=== PATIENT | female | born 1955 | race Caucasian/White ===

== ENCOUNTER 2018-10-15 10:35 | Day surgery (SDC) | payer BC ==
[2018-10-10 15:38] VITALS: BMI 18.0
--- NOTE | 2018-10-14 09:54 | HP ---
Admitting History and Physical - Primary Care Physician PCP: Yusuf Smith Y - Admission Chief Complaint: right breast cancer History of Present Illness: Patient is a 63 yo female noted to have right breast mass with calcifications on screening mammo and US at the 10 oclock position. 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 The patient had an MRI done 09/24 which was c/w known cancer (3.2 cm) without evidence of multifocal or contralateral dz. Patient is now presenting for right breast WE with NL. History Source: Patient Limitations to Obtaining History: No Limitations - Past Medical History Cardiovascular: Yes: HTN ...: No - Past Surgical History Past Surgical History: Yes: (x2), Tonsillectomy Additional Past Surgical History: [place] ocular procedure sec to glaucoma - Smoking History Smoking history: Current every day smoker Have you smoked in the past 12 months: Yes Aproximately how many cigarettes per day: 5 - Alcohol/Substance Use Hx Alcohol Use: Yes (1-2/DAY Wine) Home Medications - Allergies Allergies/Adverse Reactions: Allergies Allergy/AdvReac Type Severity Reaction Status Date / Time No Known Drug Allergies Allergy Verified 10/10/18 15:11 - Home Medications Home Medications: Ambulatory Orders Albuterol Sulfate Inhaler - [Ventolin Hfa Inhaler -] 1 - 2 inh PO QID PRN Amlodipine Besylate [Norvasc -] 10 mg PO HS 10/10/18 Ascorbic Acid [Vitamin C] 20 mg PO DAILY 10/10/18 Bupropion HCl [Wellbutrin Xl] 300 mg PO DAILY 10/10/18 Escitalopram Oxalate [Lexapro -] 10 mg PO HS 10/10/18 Fluticasone Propionate [Flovent Diskus] 2 puff IH DAILY 10/10/18 Glucosam/Chond/Collagen/Hyalur [Glucosamine Chondroitin Cap] 1 each PO DAILY 05/20 Levothyroxine [Synthroid -] 50 mcg PO DAILY 10/10/18 Telmisartan 80 mg PO HS 10/10/18 Family Disease History - Family Disease History Family Disease History: CA: Father (melanoma ?lung ca 60's), Mother (pancreatic ca unknown age), Brother (melanoma 58) Other Family History: paternal cousin (breast cancer 30s and BRCA pos) Review of Systems - Review of Systems Constitutional: reports: No Symptoms Cardiovascular: reports: No Symptoms Respiratory: reports: No Symptoms Physical Examination Constitutional: Yes: Well Nourished Breast(s): Yes: Other (Slight thickening and density noted in the right breast upper outer aspect at site of bx. No other suspicious masses or adenopathy noted bilaterally.) Problem List - Problems (1) Breast cancer, right Code(s): C50.911 - MALIGNANT NEOPLASM OF UNSP SITE OF RIGHT FEMALE BREAST Qualifiers: Breast location: upper outer quadrant of breast Estrogen receptor status: negative Patient sex: female Qualified Code(s): C50.411 - Malignant neoplasm of upper-outer quadrant of right female breast; Z17.1 - Estrogen receptor negative status [ER-] Assessment/Plan Right breast wide excision with NL
[2018-10-15] MEDS ORDERED: diazePAM 5 MG TABLET ONE (12:01)
[2018-10-15] MEDS ORDERED: GUM MASTIC/STORAX/MSAL/ALCOHOL 1 DRP DROPSBTL MC ONE (13:07)
[2018-10-15] MEDS ORDERED: BUPIVACAINE HCL/PF 2.5 MG/ML - 30 ML VIAL IJ ONE (13:07)
[2018-10-15] MEDS ORDERED: fentaNYL CITRATE 250 MCG/5 ML VIAL ONE (14:07)
[2018-10-15] MEDS ORDERED: MIDAZOLAM HCL 2 MG/2 ML SINGLE DOSE VIAL ONE ×2 (14:07→14:08)
[2018-10-15] MEDS ORDERED: PROPOFOL 20 ML ONE (14:07)
[2018-10-15] MEDS ORDERED: ROCURONIUM BROMIDE 50 MG/5 ML VIAL ONE (14:07)
[2018-10-15] MEDS ORDERED: SUCCINYLCHOLINE CHLORIDE 200 MG/10 ML VIAL ONE (14:07)
[2018-10-15] MEDS ORDERED: DEXAMETHASONE SOD PHOSPHATE 4 MG/1 ML VIAL ONE ×2 (14:09→14:34)
[2018-10-15] MEDS ORDERED: ONDANSETRON 4 MG/2 ML VIAL ONE ×2 (14:09→14:34)
[2018-10-15] MEDS ORDERED: LIDOCAINE HCL/PF 2% SDV 5ML VIAL ONE (14:09)
[2018-10-15] MEDS ORDERED: ceFAZolin SODIUM 1 GM VIAL ONE (14:34)
[2018-10-15] MEDS ORDERED: LIDOCAINE HCL 1% PRESERVATIVE FREE - 30ML VIAL ONE (14:53)
[2018-10-15] MEDS ORDERED: oxyCODONE HCL 5 MG TABLET PO PRN ×2 (15:05)
[2018-10-15] MEDS ORDERED: ONDANSETRON 4 MG/2 ML VIAL IVPUSH PRN ×2 (15:05→15:50)
[2018-10-15] MEDS ORDERED: LACTATED RINGERS SOLUTION 1,000 ML IV SCH (15:15)
[2018-10-15] MEDS ORDERED: KETOROLAC TROMETHAMINE 30 MG/1 ML VIAL IVPUSH PRN (15:50)
[2018-10-15] MEDS ORDERED: DEXTROSE 5%-0.45% SALINE 1,000 ML IV SCH (16:00)
[2018-10-15] MEDS ORDERED: KETOROLAC TROMETHAMINE 30 MG/1 ML VIAL ONE (16:07)
[2018-10-15 17:02] VITALS: TEMP 97.7
[2018-10-15 17:54] VITALS: BP 100/59; PULSE 69
--- NOTE | 2018-10-16 09:18 | OP ---
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 PROCEDURE PERFORMED: Right breast partial mastectomy with bracketed needle localizations and 3 x 4-cm tissue transfer closure. ANESTHESIA: General laryngeal mask airway anesthesia. PRIMARY SURGEON: Laci Smith MD MARZIPAN MOLDER: ROMELIA Vidal COMPLICATIONS: There were no complications. INDICATIONS: Briefly, the patient is a 63-year-old postmenopausal white female of Ashkenazi Yazdanism heritage, with a family history with her paternal cousin who had breast cancer in her 30s. Her mother had pancreatic cancer, and her father had lung cancer and melanoma. The patient underwent mammography, showing some highly suspicious calcifications in the upper outer aspect of the right breast, about 11 to 12 cm from the nipple. An ultrasound showed a corresponding area in the right breast 10 o'clock region. Ultrasound-guided core biopsy in August 2018 showed high-grade DCIS, which was ER-AK negative. MRI showed localized disease extending over an area of 3.2 cm anterior to posterior. The patient was recommended to undergo a partial mastectomy with bracketed needle localization. DESCRIPTION OF PROCEDURE: The patient was brought in for the procedure on October 15, 2018. The radiologist placed bracket needle localization wires anterior and posterior to the calcifications, and she was brought to the holding area. In the holding area, site verification was made and informed consent was obtained. She was brought to the operating room and laid on the OR table in the supine position. Venodynes were placed on the lower extremities prior to induction. She received 1 g of Ancef prior to incision. She underwent general laryngeal mask airway anesthesia. The right breast was sterilely prepped and draped in the usual fashion, with the wire prepped in the field. Once the patient was properly anesthetized, a curvilinear incision was made towards the upper outer aspect of the right breast and dissection was undertaken between the 2 needle localization wires. Wide excision was taken between the [address] down to the pectoralis major muscle in the upper outer aspect of the right breast. The specimen was completely removed and oriented with a long lateral and short superior suture. Specimen radiograph showed removal of all the calcifications in question. Hemostasis was achieved. Separate margins were taken on the superior, inferior, medial, lateral, deep, and anterior aspects, with sutures marking the biopsy cavity side, and these were all sent separately to Pathology as wide excision margins. The wide excision itself was placed in formalin and also sent to Pathology. Hemostasis was achieved using electrocautery, and the breast parenchyma was then reapproximated after a 4 x 3-cm tissue transfer closure to close the defect in the wound. The breast tissue was reapproximated using 2-0 plain suture. The skin was closed using interrupted 3-0 deep dermal Vicryl suture and a running 4-0 subcuticular Biosyn suture. Dermabond was placed over the wound, with a sterile dressing placed over this. The patient was tolerated the procedure well, without difficulty. The laryngeal mask airway tube was removed at the end of the case. She will be recovered in the postanesthesia care unit and be discharged home the same day once discharge criteria are met. She is to follow up in the office in 1 week for a formal wound pathology check. All sponge and needle counts were correct at the end of the case, and estimated blood loss was minimal. LACI SMITH M.D. [id number]
--- NOTE | 2018-10-18 15:53 | PATH ---
Surgical Pathology Report Patient Name: JONE LOJA [facility]. Rec. #: [id number] /Age/Gender: 1955 (Age: 63) / F Account: [id number] Location: [facility] Taken: 10/15/2018 Received: 10/15/2018 Reported: 10/18/2018 Physicians: Yusuf Smith M.D. Specimen(s) Received A: RIGHT BREAST WIDE EXCISION B: MEDIAL MARGIN RIGHT BREAST C: LATERAL MARGIN RIGHT BREAST D: INFERIOR MARGIN RIGHT BREAST E: SUPERIOR MARGIN RIGHT BREAST F: POSTERIOR MARGIN RIGHT B REAST G: ANTERIOR MARGIN RIGHT BREAST Clinical History DCIS, ER-/NE- Final Diagnosis A. breast, right, wide excision: Ductal carcinoma in situ (DCIS), Solid and flat type, high nuclear grade, with extensive necrosis and associated calcifications. DCIS is present in eleven of sixteen slides (11/16), with the largest contiguous focus of DCIS measuring 1.2 cm in greatest dimension, microscopically. DCIS is close to (< 1mm) the superior and inferior margins and at 1 mm from the anterior and medial margins. see specimenS b-G FOR final margins. PRIOR BIOPSY SITE CHANGES ARE IDENTIFIED. PATHOLOGIC STAGE: (pTNM): pTis (DCIS) pNx. SEE ALSO DCIS CASE SUMMARY BELOW. B. BREAST, RIGHT, MEDIAL MARGIN, EXCISION: BENIGN BREAST TISSUE. C. breast, right, lateral margin, excision: Benign breast tissue. D. breast, right, inferior margin, excision: Benign breast tissue. E. breast, right, superior margin, excision: Benign breast tissue. F. breast, right, posterior margin, excision: Benign fibroadipose tissue. G. Breast, right, anterior margin, excision: Benign breast tissue. Comments DCIS of the Breast: Surgical Pathology Cancer Case Summary (Based on AJCC TNM 8 th edition) Procedure _X_ Excision (less than total mastectomy) Specimen Laterality _X_ Right Size (Extent) of DCIS Estimated size (extent) of DCIS (greatest dimension using gross and microscopic evaluation): at least (millimeters) 12 mm Number of blocks with DCIS: 11 Number of blocks examined: 33 (based on specimens A-G) Note: The size (extent) of DCIS is an estimation of the volume of breast tissue occupied by DCIS. Histologic Type _X_ Ductal carcinoma in situ Architectural Patterns _X_ Comedo _X_ Solid _X_ Flat Nuclear Grade _X_ Grade III (high) Necrosis _X_ Present, central (expansive "comedo" necrosis) Margins _X_ Uninvolved by DCIS Distance from closest margin (millimeters): < 1 mm from superior and inferior margins in wide excision A; final superior (E) and inferior margin (D) are negative for DCIS. Regional Lymph Nodes _X_ No lymph nodes submitted or found Pathologic Stage Classification (pTNM, AJCC 8th Edition) Primary Tumor (pT) _X_ pTis (DCIS): Ductal carcinoma in situ Regional Lymph Nodes (pN) _X_ pNx Microcalcifications _X_ Present in DCIS _X_ Present in nonneoplastic tissue Biomarker Studies Results of ER and NE studies performed on this specimen (block A14) at [facility] are as follows: ER (clone [id number] mouse monoclonal antibody by [employer]): 0 % nuclear staining (negative). NE (clone16 mouse monoclonal antibody by [employer]) : 0 % nuclear staining (negative). Positive and negative controls (internal if applicable) show appropriate results. Formalin fixation and cold ischemic times are within current ASCO/CAP recommendations for ER, NE and Her2 testing. Electronically Signed Bianka Grove M.D. Gross Description A. Received in formalin, labeled "right breast wide excision," is a 7.4 x 5.8 x 2.0 cm. ortega-yellow, irregular, portion of fibroadipose tissue with 2 needle localization wires present. There is a short suture marking the superior aspect and a long suture marking the lateral aspect, per the surgeon. There is no skin present. The specimen is inked as follows: superior and lateral blue; inferior green; medial yellow; anterior red; deep black. The specimen is serially sectioned from lateral to medial. Sectioning reveals multifocal dense, white, firm fibrous tissue. Log Snaker sections are submitted in 16 cassettes as follows: 1-lateral margin; [id number] submitted focus of fibrous tissue from lateral to medial (each with anterior, superior and inferior margins); [id number] focus of fibrous tissue (each with deep, superior and inferior margins); 16-medial margin. Time to formalin fixation: 22 minutes Total formalin fixation time: Approximately 27 hours. B. Received in formalin labeled "medial margin right breast," is a 2.6 x 1.7 x 1.0 cm portion of fibroadipose tissue with a suture marking the biopsy cavity side, per the surgeon. The new margin is inked blue and the specimen is serially sectioned. The specimen is entirely submitted in 3 cassettes. C. Received in formalin labeled "lateral margin right breast," is a 2.3 x 1.8 x 1.0 cm portion of fibroadipose tissue with a suture marking the biopsy cavity side, per the surgeon. The new margin is inked blue and the specimen is serially sectioned. The specimen is entirely submitted in 3 cassettes. D. Received in formalin labeled "inferior margin right breast," is a 2.7 x 2.3 x 0.9 cm portion of fibroadipose tissue with a suture marking the biopsy cavity side, per the surgeon. The new margin is inked blue and the specimen is serially sectioned. The specimen is entirely submitted in 3 cassettes. E. Received in formalin labeled "superior margin right breast," is a 3.3 x 2.2 x 0.9 cm portion of fibroadipose tissue with a suture marking the biopsy cavity side, per the surgeon. The new margin is inked blue and the specimen is serially sectioned. The specimen is entirely submitted in 3 cassettes. F. Received in formalin labeled "posterior margin right breast," is a 2.0 x 1.4 x 0.5 cm portion of fibroadipose tissue with a suture marking the biopsy cavity side, per the surgeon. The new margin is inked blue and the specimen is serially sectioned. The specimen is entirely submitted in 2 cassettes. G. Received in formalin labeled "anterior margin right breast," is a 3.0 x 2.3 x 0.7 cm portion of fibroadipose tissue with a suture marking the biopsy cavity side, per the surgeon. The new margin is inked blue and the specimen is serially sectioned. The specimen is entirely submitted in 3 cassettes. DL10/16/2018 saudi10/16/2018
== END 2018-10-15 17:56 | disposition home or self-care (01) ==
LOC: FASU 10:35
PROVIDERS: ATTEND Surgery Surgical Oncology
PROC: 0HBT0ZZ Excision of Right Breast, Open Approach (ICD-10-PCS; principal; 2018-10-15 14:35)
PROC: 0JX60ZC Transfer Chest Subcutaneous Tissue and Fascia with Skin, Subcutaneous Tissue and Fascia, Open Approach (ICD-10-PCS; 2018-10-15 14:35)
DX: C50.411 Malignant neoplasm of upper-outer quadrant of right female breast (principal); Z17.1 Estrogen receptor negative status [ER-]; Z80.3 Family history of malignant neoplasm of breast
CPT/HCPCS: 19281; 19282; 88307-TC; 88342-TC; 94760